=== PATIENT | male | born 1945 | race American Indian/Alaskan Native ===

== ENCOUNTER 2020-09-08 10:26 | Emergency (ER) | payer MEDICARE ==
[2020-09-08 10:41] VITALS: BP 197/82
== END 2020-09-08 12:00 | disposition left against medical advice (07) ==
LOC: ED 10:26
DX: R05 Cough (principal); Z53.21 Procedure and treatment not carried out due to patient leaving prior to being seen by health care provider

== ENCOUNTER 2021-04-21 15:20 | Emergency (ER) | payer MEDICARE ==
[2021-04-21 17:59] VITALS: BP 232/115
--- NOTE | 2021-04-21 17:59 | Emergency Department Report ---
ED General Adult HPI - General Stated complaint: BLOOD PRESSURE HIGH Time Seen by Provider: 04/21/21 17:57 - History of Present Illness Initial comments: Patient presents secondary to high blood pressure. He was referred by his primary care provider. His PCP saw him in the office today. His blood pressure was at 200/80. He was told to come here for "hypertensive emergency." That is the paperwork that is also completed that the patient has with him. Patient has no symptoms. He has no chest pain, headache, blurry vision, dizziness, paresthesias, or other issue or complaint. He admits that he is still eating salt. He is supposed to be on lisinopril 40 mg a day which she has been taken. He was also supposed to be on amlodipine 10 mg a day which he is not taking. He states that at 1 point he had a persistent and chronic cough and was taken off of lisinopril that got better, so he would been told not to take it again. However he did not have anything else for blood pressure and he took it. He was referred here by his PCP as above. - Related Data Home Medications Medication Instructions Recorded Confirmed Last Taken Simvastatin 20 mg PO DAILY 09/02/13 09/02/13 09/02/13 hydroCHLOROthiazide 1 tab PO DAILY 09/02/13 09/02/13 09/02/13 [Hydrochlorothiazide] metFORMIN [Glucophage] 1 tab PO BID 09/02/13 09/02/13 09/02/13 Previous Rx's Medication Instructions Recorded Last Taken Type amLODIPine 1 tab PO DAILY #30 tab 04/21/21 Unknown Rx Allergies Allergy/AdvReac Type Severity Reaction Status Date / Time No Known Allergies Allergy Verified 09/03/13 08:28 ED Review of Systems ROS: Stated complaint: BLOOD PRESSURE HIGH Other details as noted in HPI Comment: All other systems reviewed and negative Constitutional: denies: fever ENT: denies: throat pain Respiratory: denies: cough Cardiovascular: denies: chest pain Endocrine: denies: unexplained weight loss Gastrointestinal: denies: abdominal pain Genitourinary: denies: dysuria Musculoskeletal: denies: back pain Skin: denies: rash Neurological: denies: headache Hematological/Lymphatic: denies: easy bruising ED Past Medical Hx - Past Medical History Hx Hypertension: Yes Hx Diabetes: Yes Hx Asthma: No Hx COPD: No Hx Tuberculosis: No - Family History Family history: hypertension - Social History Smoking Status: Former Smoker - Medications Home Medications: Home Medications Medication Instructions Recorded Confirmed Last Taken Type Simvastatin 20 mg PO DAILY 09/02/13 09/02/13 09/02/13 History hydroCHLOROthiazide 1 tab PO DAILY 09/02/13 09/02/13 09/02/13 History [Hydrochlorothiazide] metFORMIN [Glucophage] 1 tab PO BID 09/02/13 09/02/13 09/02/13 History amLODIPine 1 tab PO DAILY #30 tab 04/21/21 Unknown Rx ED Physical Exam - General Limitations: No Limitations, Other (Pulse ox noted and normal) General appearance: alert, in no apparent distress - Head Head exam: Present: atraumatic, normocephalic - Eye Eye exam: Present: normal appearance, PERRL, EOMI - ENT ENT exam: Present: normal orophraynx, normal external ear exam - Neck Neck exam: Present: normal inspection. Absent: meningismus - Respiratory Respiratory exam: Present: normal lung sounds bilaterally. Absent: respiratory distress - Cardiovascular Cardiovascular Exam: Present: regular rate, normal rhythm - GI/Abdominal GI/Abdominal exam: Present: soft. Absent: pulsatile mass - Extremities Exam Extremities exam: Present: normal capillary refill. Absent: pedal edema - Back Exam Back exam: Absent: CVA tenderness (R), CVA tenderness (L) - Neurological Exam Neurological exam: Present: alert, oriented X3, CN II-XII intact, normal gait. Absent: motor sensory deficit - Psychiatric Psychiatric exam: Present: normal affect, normal mood - Skin Skin exam: Present: warm, dry ED Course Vital Signs 04/21/21 17:55 Temperature 98.5 F Pulse Rate 79 Respiratory 18 Rate Blood Pressure 232/115 [Right] O2 Sat by Pulse 98 Oximetry - Reevaluation(s) Reevaluation #1: 04/21/21 18:11 Patient was discharged ED Medical Decision Making - Medical Decision Making Patient was referred in for hypertensive emergency. Patient has no evidence of endorgan damage. He has no symptomatology of uncontrolled hypertension although his blood pressure is elevated. I do believe he needs to be restarted on medication. I also believe that lifestyle choices contribute to this as he has been eating salt. We have discussed a low-sodium diet. Patient was started back on medication and told to stop taking lisinopril as he previously developed a cough with this. There is no evidence of hypertensive encephalopathy. He was treated symptomatically and referred for outpatient evaluation. Based on a step criteria established around 2012, there is no indication to emergently lower somebody's blood pressure at this point. Critical Care Time: No Critical care attestation.: If time is entered above; I have spent that time in minutes in the direct care of this critically ill patient, excluding procedure time. ED Disposition Clinical Impression: Uncontrolled hypertension, Referred by health grounds caretaker Disposition: HOME / SELF CARE / HOMELESS Is pt being admited?: No Condition: Stable Instructions: Preventing Hypertension, Managing Your Hypertension, Hypertension (ED) Additional Instructions: AVOID SALT. DRINK WATER. SEE YOUR DOCTOR FOR RECHECK. Prescriptions: amLODIPine 1 tab PO DAILY #30 tab Referrals: PRIMARY CARE, [Referring] - 3-5 Days
== END 2021-04-21 18:27 | disposition home or self-care (01) ==
LOC: ED 15:20
DX: I10 Essential (primary) hypertension (principal); E11.8 Type 2 diabetes mellitus with unspecified complications; Z87.891 Personal history of nicotine dependence
CPT/HCPCS: 99282